=== PATIENT | female | born 1990 | race Caucasian/White ===

== ENCOUNTER 2022-10-29 13:34 | Outpatient (REF) | payer OTHER, SELFPAY | END 2022-10-29 13:35 | disposition home or self-care (01) | LOC: HO.HMGCLDS 13:34 | PROVIDERS: Visit Provider Nurse Practitioner Family | DX: Z01.89 Encounter for other specified special examinations (principal) | CPT/HCPCS: 36415; 86787 ==

== ENCOUNTER 2023-05-01 09:36 | Outpatient (AMB) | payer OTHER, SELFPAY ==
[2023-05-01 10:00] VITALS: BP 126/74; PULSE 74; TEMP 36.4; O2SAT 98; BMI 46.6
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
== END 2023-05-01 11:25 | disposition home or self-care (01) ==
PROVIDERS: PCP Internal Medicine; Visit Provider Physician Assistant Medical
DX: M79.641 Pain in right hand (principal)
CPT/HCPCS: 99051; 99213

== ENCOUNTER 2023-05-01 10:36 | Outpatient (REF) | payer OTHER, SELFPAY ==
--- NOTE | ~2023-05-01 | XR_ITS ---
EXAMINATION: XR HAND, RIGHT CLINICAL INFORMATION: Pain COMPARISON: None available. TECHNIQUE: PA, lateral, and oblique views of the right hand. FINDINGS: The bones and soft tissues are normal. No fracture. Alignment is anatomic. Joint spaces are maintained. No erosions or soft tissue calcifications. XR/XR hand RT 2V IMPRESSION: Normal right hand.
== END 2023-05-01 10:37 | disposition home or self-care (01) ==
LOC: HO.HMGCX 10:36
PROVIDERS: PCP Internal Medicine; Visit Provider Physician Assistant Medical
DX: M79.644 Pain in right finger(s) (principal)
CPT/HCPCS: 73120

== ENCOUNTER 2023-06-04 13:39 | Outpatient (AMB) | payer OTHER, SELFPAY ==
[2023-06-04 13:48] VITALS: BP 112/72; PULSE 90; O2SAT 99; BMI 47.1
--- NOTE | 2023-06-04 13:48 | MHC.PC.OV ---
Vital Signs 06/04/23 13:48 Height 5 ft 3 in Weight 266 lb BMI 47.1 BP 112/72 Blood Pressure Location Lt radial Position Sitting Pulse 90 Pulse Source Pulse Oximeter Pulse Oximetry (%) 99 Oxygen Delivery Method Room Air Intake Visit Reasons: Followup hand pain Intake Note: Pt is here today for a follow up visit. Pt states that she still has pain in her R hand. Pt states that she was seen in a walk in clinic for this.Pt states that she is back in school and she would like to be tested for ADHD. Allergies No Known Allergies Allergy (Verified 06/04/23 13:52) Medication List - Last Reconciled 06/04/23 by Abiola García MD metronidazole 0.75% 1 appl topical DAILY tretinoin 0.1% 1 appl topical BEDTIME Tobacco use date assessed: 06/04/23 Dental Screening Dental Screen Date: 06/04/23 Did you have a dental visit in the last 12 months?: Yes Did you have a dental problem in the last 6 months where you did not have access to dental care?: No Was dental information given to patient?: Patient has dentist HPI Followup hand pain HPI Details Pt presents complaining of persistent R index swelling and pain on and off for 1 month. Pt had negative XR and would like to be tested for arthritis. Patient has been using her hands a lot doing crafts. She denies injury. Patient moved with her mother from [place], [place]. [facility] Social History (Updated 06/04/23 @ 14:24 by Abiola García MD) Household Members Other:: single, lives with mother, moved from [place], college student Housing: House Patient Tobacco Use Status: Never used Tobacco e-Cigarette/Vaping Use: Never Used Current occupational status: employed and student Cognitive needs: No Hearing needs: No Vision needs: No Questionnaire PHQ-9 Over the last 2 weeks, how often have you been bothered by any of the following problems? 1. Little interest or pleasure in doing things: more than half the days 2. Feeling down, depressed, or hopeless: more than half the days 3. Trouble falling or staying asleep, or sleeping too much: more than half the days 4. Feeling tired or having little energy: more than half the days 5. Poor appetite or overeating: more than half the days 6. Feeling bad about yourself - or that you are a failure or have let yourself or your family down: nearly every day 7. Trouble concentrating on things, such as reading the newspaper or watching television: nearly every day 8. Moving or speaking so slowly that other people could have noticed. Or the opposite - being so fidgety or restless that you have been moving around a lot more than usual: nearly every day 9. Thoughts that you would be better off or of hurting yourself in some way: not at all Total score: 19 Depression Screening Interpretation: Positive Depression Screening Done: Yes Source: Developed by Drs. Joaquin Avila, Annia Rivero, Alverto Givens and colleagues, with an educational kaleb from [employer]. Thrive Questionnaire Date Thrive assessed: 06/04/23 I am a: Patient What is your living situation today?: I have a steady place to live Within the past 12 months, did the food you bought not last and you didn't have the money to get more?: Never true Within the past 12 months, did you worry whether your food would run out before you got money to buy more?: Never true Do you have trouble paying for medicines?: No Do you have trouble getting transportation to medical appointments?: No Do you have trouble paying your heating and electricity bill?: No Do you have trouble taking care of your child, family member or friend?: No Do you have trouble with day-to-day activities such as bathing, preparing meals, shopping, managing finances, etc.?: No Are you currently unemployed and looking for a job?: No Are you interested in more education?: No Please select the resources that you would like help with: None Currently or been in a relationship where the following occur: no concerns reported AUDIT C Alcohol Use Questionnaire (AUDIT-C) 1. How often do you have a drink containing alcohol?: Never 3. How often do you have six or more drinks on one occasion?: Never Total Score: 0 MARY-7 AMB Questionnaire MARY-7 Date MARY - 7 assessed: 06/04/23 Feeling nervous, anxious, or on edge: 2 = More than half the days Not being able to stop or control worryin = More than half the days Worrying too much about different things: 2 = More than half the days Trouble relaxin = Nearly every day Being so restless that it is hard to sit still: 3 = Nearly every day Becoming easily annoyed or irritable: 2 = More than half the days Feeling afraid as if something awful might happen: 3 = Nearly every day Total MARY-7 score (0-4 normal; 5-9 mild; 10-14 moderate; 15-21 severe): 17 Source: Developed by Drs. Joaquin Avila, Annia Rivero, Alverto Givens and colleagues, with an educational kaleb from [employer]. Review of Systems Const All systems reviewed & are unremarkable except as noted in HPI and below Reports no additional complaints Eyes Reports no additional complaints ENT Reports no additional complaints Card Reports no additional complaints Resp Reports no additional complaints GI Reports no additional complaints Reports no additional complaints Physical exam (Primary Care) Vital Signs: Last Vital Signs Pulse 90 06/04/23 13:48 BP 112/72 06/04/23 13:48 Pulse Ox 99 06/04/23 13:48 Oxygen Delivery Method Room Air 06/04/23 13:48 BMI result Body Mass Index 47.1 Tobacco/Smoking Status: Tobacco use Status Tobacco use date assessed 06/04/23 06/04/23 13:54 Patient Tobacco Use Status Never used Tobacco 06/04/23 14:06 e-Cigarette/Vaping Use Never Used 06/04/23 14:06 Depression Screening Interpretation: Positive Currently or been in a relationship where the following occur: no concerns reported Const General: no acute distress HENMT Ears: hearing grossly normal bilaterally Face and sinus: Yes normal facial exam Resp Effort & Inspection: normal respiratory effort Auscultation: clear to auscultation bilaterally Cardio Rhythm: regular rhythm Heart sounds: S1 normal heart sound present and S2 normal heart sound present Extrem Other: R index finger MCP joint tenderness, no erythema or warmth Assessment and Plan Assessment & Plan (1) Annual physical exam: Code(s): Z00.00 - Encounter for general adult medical examination without abnormal findings (2) Abnormal Pap smear of cervix: Comment: 2021 in [place], Code(s): R87.619 - Unspecified abnormal cytological findings in specimens from cervix uteri (3) Finger pain, right: Code(s): M79.644 - Pain in right finger(s) Plan: pt requested referral to hand surgeon, check arthritis panel Orders: Orders Comprehensive [place]. Panel Fast Today Z00.00 - Encounter for general adult medical examination without abnormal findings Rheumatoid Factor Today Z00.00 - Encounter for general adult medical examination without abnormal findings Lipid Panel Today Z00.00 - Encounter for general adult medical examination without abnormal findings Complete Blood Count Auto Diff Today Z00.00 - Encounter for general adult medical examination without abnormal findings TSH reflex Free T4 Today Z00.00 - Encounter for general adult medical examination without abnormal findings JAMILA Reflex Titer and Pattern Today Z00.00 - Encounter for general adult medical examination without abnormal findings Erythrocyte Sedimentation Rate Today Z00.00 - Encounter for general adult medical examination without abnormal findings Referrals Hand Surgery Referral M79.644 - Pain in right finger(s), Z00.00 - Encounter for general adult medical examination without abnormal findings Medications: New tretinoin 0.1% 1 appl topical BEDTIME 45 grams 3RF Coding Level of Care Code New Pt Level 3 (30197) Diagnoses Annual physical exam Z00.00 Abnormal Pap smear of cervix R87.619 Finger pain, right M79.644
== END 2023-06-04 14:27 | disposition home or self-care (01) ==
PROVIDERS: PCP Internal Medicine; Visit Provider Internal Medicine
DX: M79.644 Pain in right finger(s) (principal); R87.619 Unspecified abnormal cytological findings in specimens from cervix uteri
CPT/HCPCS: 99203

== ENCOUNTER 2023-07-15 12:09 | Outpatient (REF) | payer OTHER, SELFPAY | END 2023-07-15 12:10 | disposition home or self-care (01) | LOC: HO.HOSX 12:09 | PROVIDERS: Visit Provider Physician Assistant | DX: Z13.89 Encounter for screening for other disorder (principal) ==

== ENCOUNTER 2023-07-16 08:52 | Outpatient (AMB) | payer OTHER, SELFPAY ==
[2023-07-16 09:00] VITALS: BMI 47.1
--- NOTE | 2023-07-16 09:00 | MHC.OFFVIS ---
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 Patient reports about a month ago she notice that her pointer finger was getting swollen and its been causing her pain. 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 Pederson is a 32 yo right hand dominant female who presents to the office today for evaluation of her index finger. She reports that mid April she woke up one morning and her index finger was swollen and she was having pain. She waiting for swelling to subside some and then presented to an urgent care where x-rays were obtained and she reports that they did not diagnose any acute fracture or dislocation. She resumed back to normal activities but continued to have pain. Since then her symptoms have improved. Swelling has decrease. Reports intermittent discomfort. [facility] Social History Household Members Other:: single, lives with mother, moved from [place], college student Housing: House Patient Tobacco Use Status: Never used Tobacco e-Cigarette/Vaping Use: Never Used Current occupational status: employed and student Cognitive needs: No Hearing needs: No Vision needs: No Review of Systems Const All systems reviewed & are unremarkable except as noted in HPI and below Physical Exam Vital Signs: BMI result Body Mass Index 47.1 Extrem Other: Right hand normal to inspection. No ecchymosis, erythema or edema. Mild tenderness to palpation over the index finger proximal phalanx. Able to make a full fist and perform full finger extension, abduction, adduction, finger cross, okay sign, and thumbs up without deficit. Sensation intact. Capillary refill is brisk. Assessment & Plan Assessment & Plan (1) Finger pain, right: Code(s): M79.644 - Pain in right finger(s) Plan: Ms. Pederson is a 32 yo right hand dominant female who presents to the office today for evaluation of her index finger. She reports that mid April she woke up one morning and her index finger was swollen and she was having pain. She waiting for swelling to subside some and then presented to an urgent care where x-rays were obtained and she reports that they did not diagnose any acute fracture or dislocation. She resumed back to normal activities but continued to have pain. Since then her symptoms have improved. Swelling has decrease. Reports intermittent discomfort. On exam she is able to make a full fist without difficulties. I have instructed that she may return back to normal activities as tolerated. She may f/u prn, sooner if needed. X-rays obtained in the office today reveal possibility of periosteal reaction at the proximal phalanx which may reflex healed proximal phalanx fracture. Orders: Orders XR hand RT min 3V Today M79.643 - Pain in unspecified hand Coding Level of Care Code New Pt Level 3 (38652) Diagnoses Finger pain, right M79.644
== END 2023-07-16 09:23 | disposition home or self-care (01) ==
PROVIDERS: PCP Internal Medicine; Visit Provider Physician Assistant
DX: M79.644 Pain in right finger(s) (principal)
CPT/HCPCS: 99203

== ENCOUNTER 2023-07-16 08:52 | Outpatient (REF) | payer OTHER, SELFPAY ==
--- NOTE | ~2023-07-16 | XR_ITS ---
EXAMINATION: XR HAND, RIGHT CLINICAL INFORMATION: Pain COMPARISON: X-ray the right hand April 2023 TECHNIQUE: PA, lateral, and oblique views of the right hand. FINDINGS: The bones and soft tissues are normal. No fracture. Alignment is anatomic. Joint spaces are maintained. No erosions or soft tissue calcifications. XR/XR hand RT min 3V IMPRESSION: Normal right hand.
== END 2023-07-16 08:53 | disposition home or self-care (01) ==
LOC: HO.HOSX 08:52
PROVIDERS: PCP Internal Medicine; Visit Provider Physician Assistant
DX: M79.644 Pain in right finger(s) (principal); M79.641 Pain in right hand
CPT/HCPCS: 73130; 99202

== ENCOUNTER 2023-08-07 12:25 | Outpatient (AMB) | payer OTHER, SELFPAY ==
[2023-08-07 12:43] VITALS: BP 110/70; PULSE 74; TEMP 36.7; O2SAT 100; BMI 47.1
--- NOTE | 2023-08-07 12:43 | AM.OFFWIN_ITS ---
Intake Vital Signs 08/07/23 12:43 Height 5 ft 3 in Weight 266 lb BMI 47.1 BP 110/70 Blood Pressure Location Rt brachial Position Sitting Pulse 74 Pulse Source Pulse Oximeter Temp 98.1 F Temp Source Oral Pulse Oximetry (%) 100 Intake Visit Reasons: EP Diarrhea, Nausea, vomiting 5 days Intake Note: pt is here for c/o diarrhea, nausea, vomiting 5x days Patient Tobacco Use Status: Never used Tobacco Allergies No Known Allergies Allergy (Verified 08/07/23 12:44) Do you need a note to return to daycare/school/sports/work: Yes HPI HPI Comments History of Present Illness Details Patient is a 32yo F who presents with her mother for abdominal complaint day had abdominal cramping, one episode of vomiting and diarrhea Vomiting resolved Intermittent cramping since and + diarhrea +watery. No blood or black. No fever or chills No URI symptoms Had similar episodes for the last two months Never seen GI No use of OTC medicine No food associatied noted No travel or known eating out of contamination [facility] Social History Household Members Other:: single, lives with mother, moved from [place], college student Housing: House Patient Tobacco Use Status: Never used Tobacco e-Cigarette/Vaping Use: Never Used Current occupational status: employed and student Cognitive needs: No Hearing needs: No Vision needs: No Review of Systems Const Denies body aches, Denies chills, Denies fatigue and Denies fever(s) Eyes Denies blurry vision ENT Denies dizziness, Denies nasal congestion and Denies sore throat Card Denies chest pain Resp Denies cough GI Reports abdominal pain, Denies melena, Denies hematochezia, Reports change in bowel habits, Denies constipation, Reports diarrhea, Reports nausea and Reports vomiting (one episode) Denies abnormal menses, Denies hematuria, Denies dysuria, Denies urinary hesitancy and Denies urinary urgency Neuro Denies dizziness Endo Denies fatigue Physical Exam Vital Signs: Last Vital Signs Temp 98.1 F 08/07/23 12:43 Pulse 74 08/07/23 12:43 BP 110/70 08/07/23 12:43 Pulse Ox 100 08/07/23 12:43 BMI result Body Mass Index 47.1 General: Non-toxic, NAD. Speaking full sentences. Skin: Warm dry throughout Eye: PERRL, EOMI HENT: Airway patent. Uvula midline. No pharyngeal erythema or edema. No ANTHROPOLOGY AND ARCHEOLOGY INSTRUCTOR. Bilateral canals clear. TM non-erythematous, non-bulging. No TM perforation or hemotympanum noted. Respiratory: CTA bilaterally. No wheezes, rales or rhonchi Cardiac: RRR. No murmur Abdominal: BS present. Non-tender throughout. No rebound or guarding. Negative Muro and Rosving signs. No CVAT. No palpable masses. No abdominal distention or pusatile mass. MSK: Full ROM extremities. Neurology: A/O. No aphasia or facial droop. Gait without abnormality Psych: Good mood and affect Assessment & Plan Assessment & Plan (1) Diarrhea: Code(s): R19.7 - Diarrhea, unspecified Qualifiers: Diarrhea type: unspecified type Qualified Code(s): R19.7 - Diarrhea, unspecified Plan: see below (2) Abdominal pain: Code(s): R10.9 - Unspecified abdominal pain Qualifiers: Abdominal location: generalized Qualified Code(s): R10.84 - Generalized abdominal pain Plan: Patient seen and evaluated. No acute abdomen on exam Discussed abdominal differential and no current concern appendicitis, pancreatitis or acute zoran/diverticulitis Stool GI panel ordered CBC, CMP, Lipase Discussed no results until Tueday so new or worsening symptoms, she needs to go to ED F/U with PCP. ? GI referral Patient and mother gave verbal understanding and had no additional questions or concerns at time of discharge All questions answered Orders: Orders Lipase Today R10.9 - Unspecified abdominal pain Complete Blood Count Auto Diff Today R10.9 - Unspecified abdominal pain, R19.7 - Diarrhea, unspecified Comprehensive Met. Panel Today R10.9 - Unspecified abdominal pain GI Panel Today R10.9 - Unspecified abdominal pain H pylori Ag Stool Today R19.7 - Diarrhea, unspecified Coding Level of Care Code Est Pt Level 4 (92494) Diagnoses Diarrhea, unspecified type R19.7 Diarrhea type: unspecified type Generalized abdominal pain R10.84 Abdominal location: generalized
== END 2023-08-07 13:52 | disposition home or self-care (01) ==
PROVIDERS: PCP Internal Medicine; Visit Provider Physician Assistant
DX: R19.7 Diarrhea, unspecified (principal); R10.84 Generalized abdominal pain
CPT/HCPCS: 99051; 99214

== ENCOUNTER 2023-08-07 13:28 | Outpatient (REF) | payer OTHER, SELFPAY ==
[2023-08-07 15:36] LABS: MANUAL DIFF FLAG NO
[2023-08-07 15:38] LABS: Basophils Percent Auto 0.3 % (0-2); Eosinophils Percent Auto 0.6 % (0-4); Hemoglobin 12.8 g/dl (12.0-16.0); Imm Gran Abs Auto 0.01 X10*3/uL (0.00-0.03); Imm Gran Pct Auto 0.1 % (0.0-0.4); Lymphocytes Absolute Auto 1.8 X10*3/uL (1.2-4.9); Lymphocytes Percent Auto 26.3 % (20-40); Mean Corpuscular HGB Conc 31.2 g/dl (31.0-35.0); Mean Corpuscular Hemoglobin 27.6 pg (27.0-33.0); Mean Corpuscular Volume 88.4 fL (80.0-98.0); Monocytes Absolute Auto 0.4 X10*3/uL (0.1-1.2); Monocytes Percent Auto 6.1 % (2-11); Neutrophils Absolute Auto 4.6 x10*3/uL (2.0-8.3); Neutrophils Percent Auto 66.6 % (45-73); Platelet Count 402 X10*3/uL (160-400); Red Blood Count 4.64 X10*6/uL (4.20-5.50); Red Cell Distribution Width 14.3 % (11.0-16.0); White Blood Count 6.9 X10*3/uL (4.8-10.8)
[2023-08-07 15:51] LABS: Rheumatoid Factor < 13.0 IU/mL (<15.0)
[2023-08-07 15:59] LABS: Alanine Aminotransferase 15 U/L (0-31); Albumin Level 4.3 g/dL (3.5-5.0); Alkaline Phosphatase 73 U/L (39-117); Anion Gap 11 (12-20); Aspartate Amino Transferase 18 U/L (5-31); Bilirubin Total 0.2 mg/dL (0.0-1.0); Blood Urea Nitrogen 9 mg/dL (9-16); Calcium 9.2 mg/dL (8.4-10.2); Carbon Dioxide 23 mmol/L (22-29); Chloride 108 mmol/L (96-108); Estimated Glomerular Filt Rate > 60; Glucose Random 77 mg/dL (60-115); Lipase 12 U/L (8-78); Sodium 138 mmol/L (135-145); Total Protein 7.8 g/dL (6.5-8.0)
[2023-08-07 16:22] LABS: Erythrocyte Sedimentation Rate 17 MM/HR (0-20)
[2023-08-07 16:53] LABS: TSH reflex Free T4 1.61 uIU/mL (0.32-4.0)
[2023-08-11 11:54] LABS: Anti Nuclear Antibody Screen NEGATIVE (NEGATIVE)
== END 2023-08-07 13:29 | disposition home or self-care (01) ==
LOC: HO.HMGCLDS 13:28
PROVIDERS: PCP Internal Medicine; Referring Provider Physician Assistant; Visit Provider Physician Assistant
DX: R10.9 Unspecified abdominal pain (principal); R19.7 Diarrhea, unspecified
CPT/HCPCS: 36415; 80053; 83690; 84443; 85025; 85652; 86038; 86431

== ENCOUNTER 2023-09-29 13:31 | Outpatient (AMB) | payer OTHER, SELFPAY ==
--- NOTE | 2023-09-29 14:25 | MHC.OFFWIV ---
Intake Vital Signs 09/29/23 14:31 Height 5 ft 3 in Weight 266 lb BMI 47.1 BP 122/80 Blood Pressure Location Lt brachial Position Sitting Pulse 82 Pulse Source Pulse Oximeter Temp 98.1 F Temp Source Oral Pulse Oximetry (%) 97 Oxygen Delivery Method Room Air Intake Visit Reasons: EST/head congestion ([phone]) Intake Note: Pt is here c/o head congestion for 24 hours. Patient Tobacco Use Status: Never used Tobacco Allergies No Known Allergies Allergy (Verified 09/29/23 14:50) Medication List - Last Reconciled 09/29/23 by Evaristo Dooley MD fluticasone propionate 50 mcg/actuation (Flonase Allergy Relief) 1 spray intranasal DAILY Do you need a note to return to daycare/school/sports/work: No HPI EST/head congestion ([phone]) HPI Details Patient presents for a sick visit. Reporting symptoms of sinus congestion, sore throat and difficulty swallowing. Low-grade fever. No family member is sick. No recent travel. Patient reports symptoms of malaise and fatigue. COUNTS INCLUDE 234 BEDS AT THE [facility] Social History Household Members Other:: single, lives with mother, moved from [place], college student Housing: House Patient Tobacco Use Status: Never used Tobacco e-Cigarette/Vaping Use: Never Used Current occupational status: employed and student Cognitive needs: No Hearing needs: No Vision needs: No Physical Exam Vital Signs: Last Vital Signs Temp 98.1 F 09/29/23 14:31 Pulse 82 09/29/23 14:31 BP 122/80 09/29/23 14:31 Pulse Ox 97 09/29/23 14:31 Oxygen Delivery Method Room Air 09/29/23 14:31 BMI result Body Mass Index 47.1 Assessment & Plan Assessment & Plan (1) Upper respiratory tract infection: Code(s): J06.9 - Acute upper respiratory infection, unspecified Plan: Antibiotics ordered. Increase fluid intake. Tylenol for aches and pains. If symptoms worsen, follow-up here for a recheck. Medications: New fluticasone propionate 50 mcg/actuation (Flonase Allergy Relief) administer into each nostril 1 spray intranasal DAILY 9.9 mL 1RF Coding Level of Care Code Est Pt Level 3 (65551) Diagnoses Upper respiratory tract infection J06.9
[2023-09-29 14:31] VITALS: BP 122/80; PULSE 82; TEMP 36.7; O2SAT 97; BMI 47.1
== END 2023-09-29 14:52 | disposition home or self-care (01) ==
PROVIDERS: PCP Internal Medicine; Visit Provider Internal Medicine
DX: J06.9 Acute upper respiratory infection, unspecified (principal)
CPT/HCPCS: 99213

== ENCOUNTER 2023-09-29 16:13 | Outpatient (REF) | payer OTHER, SELFPAY ==
[2023-09-29 17:02] LABS: Influenza A PCR NEGATIVE (Negative); Influenza B PCR NEGATIVE (Negative); Resp Syncy Virus RNA Qual PCR NEGATIVE (Negative); SARS COV2 PCR INHOUSE NEGATIVE (Negative)
== END 2023-09-29 16:14 | disposition home or self-care (01) ==
LOC: HO.HMGCLNP 16:13
PROVIDERS: Visit Provider Internal Medicine
DX: R43.9 Unspecified disturbances of smell and taste (principal)
CPT/HCPCS: 0241U

== ENCOUNTER 2024-02-10 12:44 | Outpatient (AMB) | payer OTHER, SELFPAY ==
[2024-02-10 13:05] VITALS: BP 126/78; PULSE 85; O2SAT 99; BMI 48.8
--- NOTE | 2024-02-10 13:05 | MHC.PC.OV ---
Vital Signs 02/10/24 13:05 Height 5 ft 3 in Weight 275 lb 6 oz BMI 48.8 BP 126/78 Blood Pressure Location Rt brachial Position Sitting Pulse 85 Pulse Source Pulse Oximeter Pulse Oximetry (%) 99 Oxygen Delivery Method Room Air Intake Visit Reasons: Physical Exam-NEEDS PHQ9 Allergies No Known Allergies Allergy (Verified 02/10/24 13:06) Medication List - Last Reconciled 02/10/24 by Abiola García MD fluticasone propionate 50 mcg/actuation (Flonase Allergy Relief) 1 spray intranasal DAILY Tobacco use date assessed: 02/10/24 Dental Screening Dental Screen Date: 02/10/24 Did you have a dental visit in the last 12 months?: Yes Did you have a dental problem in the last 6 months where you did not have access to dental care?: No Was dental information given to patient?: Patient has dentist HPI Physical Exam-NEEDS PHQ9 HPI Details Pt presents for PE. Pt is concerned about gaining weight despite eating well balanced diet, decreasing caloric intake and starting exercise rowing and walking every day for 1 year. [facility] Social History Household Members Other:: single, lives with mother, moved from [place], college student Housing: House Patient Tobacco Use Status: Never used Tobacco e-Cigarette/Vaping Use: Never Used Current occupational status: employed and student Cognitive needs: No Hearing needs: No Vision needs: No Questionnaire PHQ-9 Over the last 2 weeks, how often have you been bothered by any of the following problems? 1. Little interest or pleasure in doing things: more than half the days 2. Feeling down, depressed, or hopeless: more than half the days 3. Trouble falling or staying asleep, or sleeping too much: several days 4. Feeling tired or having little energy: more than half the days 5. Poor appetite or overeating: not at all 6. Feeling bad about yourself - or that you are a failure or have let yourself or your family down: more than half the days 7. Trouble concentrating on things, such as reading the newspaper or watching television: more than half the days 8. Moving or speaking so slowly that other people could have noticed. Or the opposite - being so fidgety or restless that you have been moving around a lot more than usual: not at all 9. Thoughts that you would be better off or of hurting yourself in some way: not at all Total score: 11 Depression Screening Interpretation: Positive (Patient is referred for counseling she is not interested in taking medications) Depression Screening Follow-up: Existing condition and Declines treatment Depression Screening Done: Yes 70942 - PHQ-9 Billing: Yes Source: Developed by Drs. Joaquin Avila, Annia Rivero, Alverto Givens and colleagues, with an educational kaleb from [employer] Thrive Questionnaire Date Thrive assessed: 06/04/23 I am a: Patient What is your living situation today?: I have a steady place to live Within the past 12 months, did the food you bought not last and you didn't have the money to get more?: Never true Within the past 12 months, did you worry whether your food would run out before you got money to buy more?: Never true Do you have trouble paying for medicines?: No Do you have trouble getting transportation to medical appointments?: No Do you have trouble paying your heating and electricity bill?: No Do you have trouble taking care of your child, family member or friend?: No Do you have trouble with day-to-day activities such as bathing, preparing meals, shopping, managing finances, etc.?: No Are you currently unemployed and looking for a job?: No Are you interested in more education?: Yes Please select the resources that you would like help with: None Currently or been in a relationship where the following occur: No concerns reported THRIVE Score: 0 MARY-7 AMB Questionnaire MARY-7 Date MARY - 7 assessed: 02/10/24 Feeling nervous, anxious, or on edge: 3 = Nearly every day Not being able to stop or control worryin = Nearly every day Worrying too much about different things: 3 = Nearly every day Trouble relaxin = Nearly every day Being so restless that it is hard to sit still: 3 = Nearly every day Becoming easily annoyed or irritable: 1 = Several days Feeling afraid as if something awful might happen: 3 = Nearly every day Total MARY-7 score (0-4 normal; 5-9 mild; 10-14 moderate; 15-21 severe): 19 Source: Developed by Sadiq Cosbyet B.W. Mat, Alverto Givens and colleagues, with an educational kaleb from [employer] MARY-7 Assessment Billing MARY-7 Assessment Tool: MARY-7 Assessment 87808 Review of Systems Const All systems reviewed & are unremarkable except as noted in HPI and below Reports no additional complaints Eyes Reports no additional complaints ENT Reports no additional complaints Card Reports no additional complaints Resp Reports no additional complaints GI Reports no additional complaints Physical exam (Primary Care) Vital Signs: Last Vital Signs Pulse 85 02/10/24 13:05 BP 126/78 02/10/24 13:05 Pulse Ox 99 02/10/24 13:05 Oxygen Delivery Method Room Air 02/10/24 13:05 BMI result Body Mass Index 48.8 Tobacco/Smoking Status: Tobacco use Status Tobacco use date assessed 02/10/24 02/10/24 13:07 Patient Tobacco Use Status Never used Tobacco 02/10/24 13:06 e-Cigarette/Vaping Use Never Used 02/10/24 13:06 PHQ-9: PHQ-9 Score PHQ-9: Total score 11 02/10/24 13:47 Depression Screening Interpretation: Positive (Patient is referred for counseling she is not interested in taking medications) Depression Screening Follow-up: Existing condition and Declines treatment Thrive Assessment: Date of Thrive Assessment Date Thrive assessed 06/04/23 02/10/24 13:06 Currently or been in a relationship where the following occur: No concerns reported Const General: no acute distress HENMT Head: Yes normal to inspection Face and sinus: Yes normal facial exam Mouth: Normal oral and palatal mucosa present Throat: Yes posterior oropharynx normal Eyes General: appearance normal, both eyes and all related structures Resp Effort & Inspection: normal respiratory effort Auscultation: clear to auscultation bilaterally Cardio Rhythm: regular rhythm Heart sounds: S1 normal heart sound present and S2 normal heart sound present GI Inspection: Yes normal to inspection Palpation (GI): Soft to palpation Percussion: Yes normal to percussion Auscultation: normal bowel sounds External Female Exam: normal external appearance Speculum Exam - Vagina: normal appearance of the vagina Speculum Exam - Cervix: normal appearance of the cervix Assessment and Plan Assessment & Plan (1) Annual physical exam: Code(s): Z00.00 - Encounter for general adult medical examination without abnormal findings Plan: Well-balanced diet regular physical activity weight loss discussed with the patient return for fasting blood work (2) Abnormal Pap smear of cervix: Comment: 2021 in [place], Code(s): R87.619 - Unspecified abnormal cytological findings in specimens from cervix uteri Plan: Pap smear was done today (3) Morbid obesity with BMI of 45.0-49.9, adult: Code(s): E66.01 - Morbid (severe) obesity due to excess calories; Z68.42 - Body mass index [BMI] 45.0-49.9, adult Plan: Continue decreased caloric intake diet, increase physical activity. patient will try weight watchers in addition to current dietary restriction. Wegovy 0.25 weekly for 1 month will be prescribed patient will follow-up in 1 month. She will return for fasting blood (4) Anxiety: Code(s): F41.9 - Anxiety disorder, unspecified Plan: Referred to counseling Orders: Orders Complete Blood Count Auto Diff Today R87.619 - Unspecified abnormal cytological findings in specimens from cervix uteri, Z00.00 - Encounter for general adult medical examination without abnormal findings TSH reflex Free T4 Today R87.619 - Unspecified abnormal cytological findings in specimens from cervix uteri, Z00.00 - Encounter for general adult medical examination without abnormal findings UA w Microscopic Today Z00.00 - Encounter for general adult medical examination without abnormal findings HIV Ab/Ag Today Z00.00 - Encounter for general adult medical examination without abnormal findings Syphilis Screen Today Z00.00 - Encounter for general adult medical examination without abnormal findings CT NG by PCR Today Z00.00 - Encounter for general adult medical examination without abnormal findings PAP Smear Today R87.619 - Unspecified abnormal cytological findings in specimens from cervix uteri, Z00.00 - Encounter for general adult medical examination without abnormal findings Comprehensive [place]. Panel Fast Today R87.619 - Unspecified abnormal cytological findings in specimens from cervix uteri, Z00.00 - Encounter for general adult medical examination without abnormal findings Lipid Panel Today R87.619 - Unspecified abnormal cytological findings in specimens from cervix uteri, Z00.00 - Encounter for general adult medical examination without abnormal findings Medications: New Wegovy (semaglutide (weight loss)) administer weeks 1 through 4 of therapy 0.25 mg (0.5 mL) subcut QWEEK 2 mL 1RF NS tretinoin 0.1% (Retin-A) 1 appl topical BEDTIME 45 grams 1RF Coding Level of Care Code Est Pt Prev Care 18-39y(69267) Diagnoses Annual physical exam Z00.00 Abnormal Pap smear of cervix R87.619 Morbid obesity with BMI of 45.0-49.9, adult E66.01; Z68.42 Anxiety F41.9 Additional Codes MARY-7 Assessment Billing - MARY-7 Assessment Tool: MARY-7 Assessment [id number] ([id number])
== END 2024-02-10 14:46 | disposition home or self-care (01) ==
LOC: HO.HMGC 12:44
PROVIDERS: PCP Internal Medicine; Visit Provider Internal Medicine
DX: Z00.00 Encounter for general adult medical examination without abnormal findings (principal); R87.619 Unspecified abnormal cytological findings in specimens from cervix uteri; E66.01 Morbid (severe) obesity due to excess calories; Z68.42 Body mass index [BMI] 45.0-49.9, adult; F41.9 Anxiety disorder, unspecified
CPT/HCPCS: 99395

== ENCOUNTER 2024-02-10 19:47 | Outpatient (REF) | payer OTHER, SELFPAY | END 2024-02-10 19:48 | disposition home or self-care (01) | LOC: HO.LNP 19:47 | PROVIDERS: Visit Provider Internal Medicine | DX: Z00.00 Encounter for general adult medical examination without abnormal findings (principal); R87.619 Unspecified abnormal cytological findings in specimens from cervix uteri | CPT/HCPCS: 88175 ==